=== PATIENT | male | born 1965 | race Caucasian/White ===

== ENCOUNTER 2022-04-24 10:26 | Emergency (ER) | payer SELFPAY ==
[2022-04-24] VITALS (58 sets, daily range): BP systolic 78–143; BP diastolic 36–82
[2022-04-24 10:57] LABS: HEMATOCRIT 32.4 % (39.0-50.0); HEMOGLOBIN 11.7 g/dl (14.0-18.0); MEAN CELL VOLUME 102.2 fL CALC (80.0-100.0); MEAN CORPUSCULAR HGB 36.9 pG CALC (26.0-32.0); MEAN CORPUSCULAR HGB CONC 36.1 g/dL CAL (32.0-36.0); RED BLOOD COUNT 3.17 mill/uL (4.70-6.10); RED CELL DISTRI WIDTH 17.3 % (11.5-15.5)
[2022-04-24 11:14] LABS: INTERNATIONAL NORMALIZED RATIO 2.8 RATIO (0.7-1.3); PROTHROMBIN TIME 26.8 SECONDS (9.0-12.5)
[2022-04-24 11:18] LABS: ALBUMIN 2.9 g/dL (3.2-5.0); POTASSIUM 4.2 mmol/l (3.5-5.1); TOTAL PROTEIN 7.8 g/dL (6.3-8.2)
[2022-04-24 11:20] LABS: BASO% 0.1 % (0-3); EOS% 1.4 % (0-8); IMMATURE GRANULOCYTES 0.3 % (0.0-5.0); LYMPH% 13.2 % (15-41); MONO% 6.4 % (2-13); NEUT# 7.46 thou/uL (1.82-7.42); NEUT% 78.6 % (42-76)
[2022-04-24 11:43] LABS: BILIRUBIN, TOTAL 24.7 mg/dL (0.2-1.3); CREATININE 14.8 mg/dL (0.7-1.3)
== END 2022-04-24 16:24 | disposition short-term general hospital (02) | DRG 194 ==
LOC: ED 10:26
PROVIDERS: Emergency Medicine
DX: J18.9 Pneumonia, unspecified organism (principal); N17.9 Acute kidney failure, unspecified; F10.10 Alcohol abuse, uncomplicated; K76.82 Hepatic encephalopathy; K70.31 Alcoholic cirrhosis of liver with ascites; Z20.822 Contact with and (suspected) exposure to COVID-19